=== PATIENT | male | born 1990 | race Two or more races ===

== ENCOUNTER → 2018-07-09 | Outpatient (CLI) | payer OTHER ==
[~2018-07-09] MED LIST: FAMO20 PO; PROM25 PO; Prilosec20 MG PO; Zofran Odt4 MG SL
== END | disposition home or self-care (01) ==
LOC: LAB SHORT 13:59 → LAB 13:59
DX: R10.9 Unspecified abdominal pain (principal)
CPT/HCPCS: 87338